=== PATIENT | male | born 1980 ===

== ENCOUNTER 2024-08-27 03:29 | Emergency (ER) | payer BC | END 2024-08-27 05:07 | disposition home or self-care (01) | LOC: JD.ED 03:29 | DX: J18.9 Pneumonia, unspecified organism (principal); H66.001 Acute suppurative otitis media without spontaneous rupture of ear drum, right ear; I10 Essential (primary) hypertension; Z79.899 Other long term (current) drug therapy | CPT/HCPCS: 71046; 71046-26; 87428-QW; 99285 ==

== ENCOUNTER 2024-09-17 14:14 | Emergency (ER) | payer BC ==
[2024-09-17] MEDS: diphenhydrAMINE 50 MG/ML SDV IVPUSH ONE (14:55)
[2024-09-17] MEDS: methylPREDNISolone Sodium Succinate 125 MG/2 ML SDV IVPUSH ONE (14:58)
[2024-09-17] MEDS: Famotidine 20 MG/2 ML SDV IVPUSH ONE (15:02)
[2024-09-17] MEDS: Sodium Chloride 0.9% 10 ML Syringe FLUSH PRN (15:04)
== END 2024-09-17 16:33 | disposition home or self-care (01) ==
LOC: JD.ED 14:14
DX: L50.0 Allergic urticaria (principal); I10 Essential (primary) hypertension; Z86.16 Personal history of COVID-19; Z90.49 Acquired absence of other specified parts of digestive tract; Z79.52 Long term (current) use of systemic steroids; Z79.899 Other long term (current) drug therapy
CPT/HCPCS: 96374; 96375; 99283; J1200; J2919